=== PATIENT | female | born 1990 | race Caucasian/White ===

== ENCOUNTER 2020-10-25 01:39 | Outpatient (CLI) | payer BC ==
[~2020-10-25] VITALS: Ht 167.6 cm; Wt 75.9 kg
--- NOTE | 2020-10-25 01:50 | NUR ---
G1 at 39 weeks and 1 day arrives to unit ambulatory with complaint of contractions every 6-13 minutes at home. Pt denies loss of fluid or vaginal bleeding. Pt reports good movement. Pt denies headaches, blurry vision, or RUQ pain currently. Pt oriented to room, call light within reach, bed in low and locked position. Clean gown on. US and toco explained and applied. Plan of care reviewed with patient and spouse. Admission assessment started. Vital signs obtained. SVE 3/75/-3, membranes intact, vertex position
[2020-10-25 02:00] VITALS: BP 138/96; PULSE 99; TEMP 98.4
[2020-10-25] MEDS ORDERED: PRENATAL (02:05)
[2020-10-25 02:30] VITALS: BP 134/92; PULSE 80
[2020-10-25 03:00] VITALS: BP 127/75; PULSE 72
--- NOTE | 2020-10-25 03:00 | NUR ---
SVE unchanged over 1 hour. Offered patient an additional hour labor check. After discussing with spouse, ok with discharging and laboring at home. See physician notification.
[2020-10-25 03:15] VITALS: BP 110/72; PULSE 86
--- NOTE | 2020-10-25 03:29 | NUR ---
Discharge instructions reviewed with patient, verbalized understanding. Pt seen ambulating off unit with spouse.
== END 2020-10-25 03:39 | disposition home or self-care (01) ==
LOC: LDRO 01:39
DX: O62.9 Abnormality of forces of labor, unspecified (principal); Z3A.39 39 weeks gestation of pregnancy

== ENCOUNTER 2020-10-27 02:26 | Inpatient (IN) | payer BC ==
[2020-10-27] VITALS (30 sets, daily range): BP systolic 110–150; BP diastolic 59–93; PULSE 66–104; TEMP 97.8–98.6
[~2020-10-27] VITALS: Ht 167.6 cm; Wt 75.9 kg
[~2020-10-27 02:26] MED LIST: PRENATAL
--- NOTE | 2020-10-27 02:35 | NUR ---
0235- PT. WHEELED TO UNIT WITH BY HER SIDE. ORIENTATED TO ROOM AND CHANGED INTO CLEAN GOWN. PT. REPORTS GFM, NO LOF OR BLEEDING AND CONTRACTIONS SINCE AROUND 1800. THIS IS A AT 39.[address] MONCADA. 0241- EFM AND TOCO ON AND TRACING. VITALS TAKEN, ASSESSMENT COMPLETED. SVE /-2. DISCUSSED PLAN FOR THE EVENING INTO THE DAY. DENIES FURTHER NEEDS. CALL LIGHT WITHIN REACH.
[2020-10-27] MEDS ORDERED: OMEGA-3 1000 MG1 CAP PO (02:56)
[2020-10-27 04:08] LABS: BASO % 0.3 % (0.0-2.0); EOS % 0.2 % (0-4.0); GRAN # 6.7 (1.4-6.5); GRAN % 67.7 % (42.2-75.2); HEMATOCRIT 38.7 % (37.0-47.0); LYMPH # 2.6 (1.2-3.4); LYMPH % 26.2 % (20.0-51.0); MEAN CELL VOLUME 91 fl (80.0-100.0); MEAN CORPUSCULAR HEMOGLOBIN 31 pg (27.0-31.0); MEAN CORPUSCULAR HGB CONC 34 g/dl (33.0-37.0); MEAN PLATELET VOLUME 10.4 fl (7.4-10.4); MONO # 0.5 (0.1-0.6); MONO % 5.2 % (1.7-9.3); PLATELET COUNT 198 K/mm3 (130-400); RED BLOOD COUNT 4.24 M/mm3 (4.10-5.30); REDCELL DISTRIBUTION WIDTH-CV 13.3 % (11.5-14.5)
--- NOTE | 2020-10-27 04:45 | NUR ---
6305- THIS RN AND PHYSICIST ACOUSTICS, MARCELLE, TO BEDSIDE FOR EPIDURAL PLACEMENT. PATIENT HELPED INTO SITTING POSITION AND ROOM SET UP FOR PLACEMENT. MATERNAL O2 SAT PLACED ON MOM. RN REMAINS AT BEDSIDE WITH PATIENT. JACKLYN IBANEZ EXPLAINS PROCEDURE. 4764 - TEST DOSE, SEE ANESTHESIA RECORD. PT. TOLERATED WELL. THIS RN REMAINS IN ROOM AND HELPS PATIENT TO WL POSITION IN BED. THIS RN REMAINS IN ROOM AFTER PROCEDURE FOR 30 MINUTES LIKE PROTOCOL STATES.
--- NOTE | 2020-10-27 09:04 | NUR ---
0850- DR MONCADA AT BEDSIDE. AT 0904- VIABLE MALE TO MOTHERS CHEST IN CARE OF SANGEETHA STONER. FOB CUT CORD. PLACENTA SPON DELIVERED AT 0907. OXYTOCIN STARTED AT 333 MLS/ HR. FUNDAL MASSAGE PROVIDED. 2ND DEGREE LAC REPAIRED BY DR MONCADA. ICE PACK TO PERINEUM. RECOVERY STARTED AT 0915
[2020-10-28 01:10] VITALS: BP 120/74; PULSE 77; TEMP 98.4
[2020-10-28 08:00] VITALS: BP 123/80; PULSE 89; TEMP 98.4
--- NOTE | 2020-10-28 08:00 | NUR ---
Up in room changing babys diaper. Ibuprofen 800 mg given as ordered and per request.
[2020-10-28] MEDS ORDERED: MOTRIN 800800 MG/TAB PO (08:48)
--- NOTE | 2020-10-28 11:45 | NUR ---
Rests in bed, alert. Tylenol 650 mg given per request and as ordered.
[2020-10-28 16:45] VITALS: BP 116/68; PULSE 72; TEMP 98.5
--- NOTE | 2020-10-28 16:45 | NUR ---
Rests in bed, alert. Request pain medication.[id number] Ibuprofen 800 mg given per request and as ordered.
[2020-10-28 19:00] VITALS: BP 110/67; PULSE 72; TEMP 98.3
== END 2020-10-28 20:10 | disposition home or self-care (01) | DRG 807 ==
LOC: LDRO 02:26 → LDR 03:32 → OB 11:45
PROVIDERS: Student in an Organized Health Care Education/Training Program; ADMIT Obstetrics & Gynecology
PROC: 10E0XZZ Delivery of Products of Conception, External Approach (ICD-10-PCS; principal; 2020-10-27)
PROC: 0KQM0ZZ Repair Perineum Muscle, Open Approach (ICD-10-PCS; 2020-10-27)
PROC: 10907ZC Drainage of Amniotic Fluid, Therapeutic from Products of Conception, Via Natural or Artificial Opening (ICD-10-PCS; 2020-10-27)
DX: O99.52 Diseases of the respiratory system complicating childbirth (principal); Z37.0 Single live birth; O70.1 Second degree perineal laceration during delivery; Z3A.39 39 weeks gestation of pregnancy; O99.62 Diseases of the digestive system complicating childbirth; J45.909 Unspecified asthma, uncomplicated; K21.9 Gastro-esophageal reflux disease without esophagitis
CPT/HCPCS: J2590; J7120